=== PATIENT | female | born 1980 | race Caucasian/White ===

== ENCOUNTER 2016-07-07 14:01 | Emergency (ER) | payer MEDICARE, MEDICAID ==
[~2016-07-07 14:01] MED LIST: ALBU18HF INHALATION; AMOX250S4 PO; CLON1TAB PO; CLR500T PO; DOCU-41 PO; GLUC1KIT PO; HYDR1LIQ4 PO; INSU100C8 SUBQ; INSU100I13 SUBQ; PANT40TA3 PO; SCOP1PAT TD; ZOF8 PO
[2016-07-07 14:05] VITALS: BP 115/74; PULSE 116; RESP 24; O2SAT 97
--- NOTE | 2016-07-07 14:47 | ED.REPORT ---
HPI-Abd Pain F Under 38 Date of Service Jul 07, 2016 ED Provider: Travis Ledbetter MD This is a 36 year old female with a history of DM, HTN, gastroparesis presenting to the emergency department complaining of abdominal pain that began upon awakening today. Pt woke up with diffuse abdominal pain, back pain, nausea , and vomiting. Denies fever, chills, hematochezia, hematemesis, diarrhea, or constipation. Nursing Notes Stated Complaint: ABDOMINAL PAIN Chief Complaint: General Complaint Nursing Notes Reviewed: Yes Allergies: Coded Allergies: lactose (Verified Allergy, Unknown, 08/04/15) Scheduled Amoxicillin Susp (Amoxicillin Susp) 250 Mg/5 Ml Susp 1,000 MG PO BID Clarithromycin (Biaxin) 500 Mg Tablet 500 MG PO BID Glucagon,Human Recombinant (Glucagon Emergency Kit) 1 Mg Kit 1 MG PO UD Use as directed if needed. Insulin Glargine (Lantus U100 Solostar Insulin Pen) 100 Unit/1 Ml Insuln.pen 22 UNIT SUBQ QAM Pantoprazole DR (Pantoprazole DR) 40 Mg Tablet.dr 40 MG PO BIDWM Scopolamine (Transderm-Scop) 1 Each Patch.td72 1 EACH TD Q72 Scheduled PRN Albuterol Sulfate (Ventolin HFA Inhaler) 200 Puff/18 Gm Inhaler 2 PUFFS INHALATION q4 hours PRN PRN For Shortness of Breath Clonazepam ODT (Clonazepam ODT) 1 Mg Tablet 1 MG PO TID PRN PRN For Anxiety Docusate Sodium (Colace) 100 Mg Capsule 100 MG PO DAILY PRN PRN For Constipation Hydromorphone (Hydromorphone) 1 Mg/1 Ml Liquid 4 MG PO q4 hours PRN PRN For Pain Insulin Aspart (NovoLOG U100 Insulin Vial) 100 U/Ml U 0-12 UNIT SUBQ SS PRN PRN sliding scale Ondansetron (Zofran) 8 Mg Tab 8 MG PO Q6 PRN PRN For Nausea General Time Seen by MD: 14:44 Chief Complaint Abdominal pain Hx Obtained From: Patient Arrived By: Walk-in Sudden in Onset?: Yes Onset Occurred: 1 - 15 minutes ago Symptom Duration: Since onset Severity: Current: Mild Pertinent Negative: Pt denies other symptoms Recent Healthcare: No recent doctor visit, No recent hospitalization Similar Sx Previous: No Past Medical History Past Medical History Notes: History of severe gastroparesis with recurrent cyclic nausea and vomiting and multiple admissions. She has left AMA in the past. Long-standing history of type I diabetes with multiple complications including nephropathy, neuropathy, retinopathy and repeated hospitalizations for above listed gastroparesis Bipolar disorder Anxiety with panic attacks and chronic dependence on benzodiazepines. Nonobstructing right nephrolithiasis by CT on August 25, 2013. History of MRSA osteomyelitis. Chronic hepatitis C. History of polysubstance abuse including IV amphetamines. Recent hypomagnesemia Past Medical History 1. Type 1 diabetes mellitus with multiple complications including diabetic neuropathy, retinopathy, gastroparesis, recurrent DKA, as well as nephropathy. 2. Depression. 3. Bipolar affective disorder. 4. Anxiety and panic attacks. 5. Hypertension. 6. Nephrolithiasis. 7. History of MRSA osteomyelitis. 8. Chronic hepatitis C. 9. History of chronic polysubstance abuse, including IV amphetamines. 10. Recurrent UTIs. 11. Chronic pain syndrome, followed by [facility]. 12. History of noncompliance. Reports: Diabetes mellitus, Hypertension, Mental illness Past Surgical History Reports: Appendectomy, Reports: Portocath Smoking History Former Smoker Social History Alcohol Use: In recovery Drug Use: In recovery, THC Ambulatory Status Independent Review of Systems Constitutional: Denies: Chills, Fever Respiratory: Denies: Non-productive cough, Shortness of breath Cardiovascular: Denies: Chest pain GI: Reports: Abdominal pain, Nausea, Vomiting, Denies: Diarrhea, Hematemesis, Hematochezia Female: Denies: Dysuria Musculoskeletal: Reports: Back pain Complete sys rev & neg: except as marked. Physical Exam Initial Vital Signs Vital Signs (First) Date Time Temp Pulse Resp B/P Pulse Ox O2 Delivery O2 Flow Rate FiO2 07/07/16 14:05 36.4 116 24 115/74 97 Room Air - Initial VS: Reviewed Head / Eyes: Atraumatic, Normocephalic, PERRL Neck: Supple, Non-tender, Full range of motion Extremities: Vascular intact, Neuro intact, No swelling, No tenderness Skin: Warm, Dry, No cyanosis Neurologic: Alert, Oriented, Nonfocal Psychiatric: Mood/affect normal, Behavior normal, Normal thought content General/Constitutional: Awake, Alert Respiratory / Chest: Breath sounds NL, Breath sounds = bilat, No respiratory distress, No rales, No rhonchi, No wheezing Cardiovascular: Heart rate NL, Regular rhythm, Heart sounds NL, Peripheral circulation NL Tenderness/Guarding/Rebound: Positive: Tender diffuse Back: Inspection NL, Non-tender, No CVA tenderness Interpretation & Diagnostics Lab Results Interpretation Result Diagram: 07/07/16 1420 07/07/16 1420 Test 07/07/16 14:20 07/07/16 14:54 White Blood Count 12.9th/mm3 (3.8-10.1) Red Blood Count 4.54mil/mm3 (3.90-5.20) Hemoglobin 12.6g/dL (12.0-15.6) Hematocrit 37.2% (35.0-46.0) Mean Corpuscular Volume 81.9fL (81-100) Mean Corpuscular Hemoglobin 27.8pg (27.0-35.0) Mean Corpuscular Hemoglobin Concent 33.9% (32.0-37.0) Red Cell Distribution Width 16.6% (12.3-15.4) Platelet Count 423bil/L (150-400) Neutrophils (%) (Auto) 86.8% (40-74) Lymphocytes (%) (Auto) 10.1% (14-46) Monocytes (%) (Auto) 1.9% (4-12) Eosinophils (%) (Auto) 0.2% (0-5) Basophils (%) (Auto) 0.8% (0-3) Sodium Level 139mEq/L (134-144) Potassium Level 3.6mEq/L (3.5-5.2) Chloride Level 98mEq/L (97-108) Carbon Dioxide Level 21mmol/L (18-29) Blood Urea Nitrogen 26mg/dL (6-20) Creatinine 1.69mg/dL (0.57-1.00) Estimat Glomerular Filtration Rate 49mL/min (>59) Glucose Level 250mg/dL (60-99) Calcium Level 9.1mg/dL (8.5-10.1) Total Bilirubin 0.5mg/dL (0.0-1.2) Aspartate Amino Transf (AST/SGOT) 19U/L (0-50) Alanine Aminotransferase (ALT/SGPT) 16U/L (0-32) Alkaline Phosphatase 114U/L (25-150) Total Protein 7.2g/dL (6.4-8.4) Albumin 4.0g/dL (3.4-5.0) Lipase 15U/L (13-60) Hold Reed Top Tube Received (Received) CT Abd / Pelvis Interpretation IMPRESSION: 1. Nonobstructing bilateral renal calculi. 2. Unchanged cholelithiasis. 3. Moderate stool within the right and transverse colon without obstruction. 4. No definitively visualized cause of acute pain. Dictated by: Radha To M.D. on 07/07/2016 at 16:04 Approved by: Radha To M.D. on 07/07/2016 at 16:08 Re-Eval/Medical Decision Med Decision/Clinical Course Med Decision/Clinical Course: 36-year-old female with history of chronic abdominal pain and gastroparesis presenting with recurrent typical symptoms of her chronic gastroparesis. She was quite tender initially. Labs were stable. Vital signs stable. CT was performed given initial significant abdominal tenderness with no acute pathology, bilateral nonobstrucing renal stones. Patient's abdominal pain completely resolved with 1 dose of Dilaudid and Reglan. She felt much better and requested to be discharged home. Given Flomax for kidney stones. Return precautions given. Re-Evaluation/Progress : Time of Eval: 16:24 Re-Evaluation/Progress Note: discusssed plan for d/c, all questions addressed Counseled Regarding: Diagnosis, Lab results, Need for follow-up, When/why to return to ED Discharge & Departure Primary Impression: Abdominal pain Abdominal location: generalized Qualified Code: R10.84 - Generalized abdominal pain Additional Impression: Gastroparesis Disposition: Home Discharge Condition All VS Reviewed: Yes Condition: Stable Patient Instructions: Acute Abdominal Pain (ED) Additional Instructions: Your lab and imaging results were reassuring today. Take zofran and dilauded as needed. Follow-up with your primary care provider. Return to the emergency department for any new or worsening abdominal pain Referrals: Tello Orta MD (PCP) Lilliam[facility] Attestation Portions of this note were transcribed by Tri Morris. I, Dr. Ledbetter personally performed the history, physical exam and medical decision-making; I reviewed and confirmed the accuracy of the information in the transcribed note. Signed by: araceli Prabhakar. 07/07/2016, 15:00. Travis Ledbetter MD Jul 07, 2016 14:47 TRI MORRIS Jul 07, 2016 14:52
[2016-07-07] MEDS ORDERED: HYDROmorphone 1 mg/mL Inj IVPUSH PRN (14:50)
[2016-07-07] MEDS ORDERED: MetoCLOpramide 5 mg/mL 2 mL Inj IVPUSH ONE (14:50)
[2016-07-07] MEDS ORDERED: 0.9% Sodium Chloride 1,000 ML IV ONE (14:50)
[2016-07-07] MEDS ORDERED: Ondansetron 2 mg/mL 2 mL Inj IVPUSH PRN (14:50)
[2016-07-07] MEDS ORDERED: Pantoprazole 4 mg/mL 10 mL Inj IVPUSH ONE (14:50)
[2016-07-07 15:13] LABS: BASOPHILS % (AUTO) 0.8 % (0-3); EOSINOPHILS % (AUTO) 0.2 % (0-5); MONOCYTES % (AUTO) 1.9 % (4-12); Mean Corpuscular Hemoglobin 27.8 pg (27.0-35.0); Mean Corpuscular Volume 81.9 fL (81-100); NEUTROPHILS % (AUTO) 86.8 % (40-74); Platelet Count 423 bil/L (150-400)
--- NOTE | 2016-07-07 16:10 | DRSVH ---
PROCEDURE: CT ABDOMEN AND PELVIS WITHOUT CONTRAST ([id number]) INDICATIONS: abd pain TECHNIQUE: Noncontrast 5 mm thick sections acquired from the diaphragms to the symphysis. 5 mm coronal and sagi ttal reformats were then performed. For radiation dose reduction, the following was used: automated exposure control, adjustment of mA and/or kV according to patient size. COMPARISON: [facility], CT, ABD/PELVIS W/O CON (PNL), 08/25/2013, 1:48. FINDINGS: Image quality: Excellent. ABDOMEN: Lung bases: Lung bases are clear. Heart size is normal. Solid organs: Liver and spleen are normal in size. Gallbladder demonstrates luminal calcifications without wall thickening, unchanged. Pancreas is normal in contours. No adrenal nodules. Kidneys ar e normal in size, without hydronephrosis. Punctate left midpole calcification is noted, new compared to prior exam. There are approximately 4 calcifications within the right kidney predominately within the mid and lower poles, new compared to prior exam. The largest measures 2-3 mm. There is no obstruc tion. Peritoneum and bowel: Unenhanced bowel loops demonstrate normal wall thickness and caliber. No free fluid or air. The appendix is not definitively identified. No right lower quadrant inflammatory joel nge. Moderate stool is present within the right and transverse colon. There is suboptimal evaluation of closely adjacent loops of bowel within the pelvis secondary to lack of oral and IV contrast. Nodes and vessels: No retroperitoneal or mesenteric adenopathy by size criteria. Aorta and inferior vena cava are normal in caliber. Miscellaneous: No ventral hernias. Mild hiatal hernia. PELVIS: Genitourinary: Bladder wall thickness is normal. Miscellaneous: No inguinal hernias or adenopathy. Bones: No suspicious bony lesions. No vertebral body compression fractures. IMPRESSION: 1. Nonobstructing bilateral renal calculi. 2. Unchanged cholelithiasis. 3. Moderate stool within the right and transverse colon without obstruction. 4. No definitively visualized cause of acute pain. Dictated by: Radha To M.D. on 07/07/2016 at 16:04 Approved by: Radha To M.D. on 07/07/2016 at 16:08
[2016-07-07 17:01] VITALS: BP 118/69; PULSE 115; RESP 18; O2SAT 99
[2016-07-07 17:03] VITALS: BP 118/69; PULSE 115; RESP 18; O2SAT 99
== END 2016-07-07 17:00 | disposition home or self-care (01) ==
LOC: SED 14:01
DX: E10.43 Type 1 diabetes mellitus with diabetic autonomic (poly)neuropathy (principal); E10.319 Type 1 diabetes mellitus with unspecified diabetic retinopathy without macular edema; E10.21 Type 1 diabetes mellitus with diabetic nephropathy; E10.40 Type 1 diabetes mellitus with diabetic neuropathy, unspecified; Z87.891 Personal history of nicotine dependence; K31.84 Gastroparesis; Z90.49 Acquired absence of other specified parts of digestive tract; Z79.4 Long term (current) use of insulin; E73.9 Lactose intolerance, unspecified; Z87.440 Personal history of urinary (tract) infections; Z86.59 Personal history of other mental and behavioral disorders; Z86.14 Personal history of Methicillin resistant Staphylococcus aureus infection
CPT/HCPCS: 36415; 74176; 80053; 81025; 83690; 85025; 96361; 96374; 96375; 99285; J1170; J2060; J2765; J7030